=== PATIENT | female | born 1960 | race Caucasian/White ===

== ENCOUNTER 2018-12-08 09:02 | Emergency (ER) | payer BC ==
[~2018-12-08] VITALS: Ht 162.6 cm; Wt 71.2 kg
[2018-12-08 12:45] VITALS: BP 150/88
--- NOTE | 2018-12-08 12:46 | NUR ---
Patient discharged to home in stable condition. Written and verbal after care instructions given. Patient verbalizes understanding of instruction.
== END 2018-12-08 12:46 | disposition home or self-care (01) ==
LOC: ER 09:08
DX: M54.2 Cervicalgia (principal); M25.511 Pain in right shoulder; M19.90 Unspecified osteoarthritis, unspecified site; V43.52XA Car driver injured in collision with other type car in traffic accident, initial encounter; Y93.89 Activity, other specified; Y92.413 State road as the place of occurrence of the external cause; Y99.8 Other external cause status
CPT/HCPCS: 70450-TC; 72125-TC; 73030-TC